=== PATIENT | female | born 1955 | race Native Hawaiian/Other Pacific Islander ===

== ENCOUNTER 2020-07-17 01:43 | Emergency (ER) | payer OTHER ==
[~2020-07-17] VITALS: Ht 162.6 cm; Wt 60.1 kg
[2020-07-17 02:23] LABS: PLATELET COUNT 275 K/uL (152-353)
[2020-07-17 02:29] LABS: POTASSIUM 3.6 mmol/L (3.6-5.2)
[2020-07-17 02:43] VITALS: BP 122/84; TEMP 98.4
[2020-07-17] MEDS ORDERED: LORA2INJ21 INJ (03:36)
[2020-07-17] MEDS ORDERED: ASPIRIN LOW81 MG PO (03:36)
[2020-07-17] MEDS ORDERED: DIVA250T2 PO (03:38)
[2020-07-17] MEDS ORDERED: ELIQUIS5 MG PO (03:38)
[2020-07-17] MEDS ORDERED: HALOPERIDOL2 MG PO (03:40)
[2020-07-17] MEDS ORDERED: HALO5INJ3 IM (03:40)
[2020-07-17] MEDS ORDERED: METO50TA27 PO (03:41)
[2020-07-17] MEDS ORDERED: METF500T PO (03:41)
[2020-07-17] MEDS ORDERED: PRAVACHOL20 MG PO (03:42)
[2020-07-17] MEDS ORDERED: NIFE30TA PO (03:42)
[2020-07-17] MEDS ORDERED: NITROGLYCERIN0.4 MG SL (03:45)
== END 2020-07-17 02:45 | disposition other institution (70) ==
LOC: ED 01:43
PROVIDERS: Family Medicine
DX: R44.0 Auditory hallucinations (principal); R46.89 Other symptoms and signs involving appearance and behavior; F41.8 Other specified anxiety disorders; Z11.59 Encounter for screening for other viral diseases; Z04.6 Encounter for general psychiatric examination, requested by authority
CPT/HCPCS: 80053; 85027; 87635; 93005; 99285; U0003